=== PATIENT | female | born 1955 | race Caucasian/White ===

== ENCOUNTER → 2020-05-28 | Outpatient (CLI) | payer MEDICARE ==
[2020-05-28 14:41] VITALS: BP 136/84; PULSE 66; RESP 16; TEMP 98.2; BMI 46.1
--- NOTE | 2020-05-28 15:52 | P.BASOAP ---
Subjective Progress Note Date: 05/28/20 Principal diagnosis: Morbid obesity 65-year-old female underwent laparoscopic band placement many years ago. Patient was 89 she thinks around the time of her band placement. Currently at 273. Describes feeling something stuck in the back of her throat. She points to the supracervical notch. History of thyroid nodule. Patient also has episodes of vomiting one to 2 times per month. Increasing reflux as well. Sometimes she has discomfort in the upper abdomen and radiates to the back. She is considering band removal. Patient is not sure how much fluid is in her band. Objective - Vital Signs Vital signs: Vital Signs Temp 98.2 F 05/28/20 14:36 Pulse 66 05/28/20 14:36 Resp 16 05/28/20 14:36 BP 136/84 05/28/20 14:36 Pulse Ox Intake & Output 05/27/20 05/28/20 05/28/20 18:59 06:59 18:59 Weight 123.831 kg - Exam Abdomen: Soft, nontender, nondistended Assessment/Plan (1) Morbid obesity Narrative/Plan: 65-year-old female with worsening reflux and episodes of vomiting. Options reviewed. We'll into the band at this time. Depending on how the patient feels with the band empty may consider band removal. The patient's lap band port was palpated. The site was aseptically prepped. The Kirby needle was advanced into the port. A total of 2 ml of fluid was removed. Band is now empty. Pressure was held and a sterile dressing was applied. Plan: Date: 05/28/20 Initial Weight: 123.831 kg Initial BMI: 46.1 Current Weight: 123.831 kg Current BMI: 46.1 Type of Surgery: Adjustable Gastric Banding Total Volume in Band: Previous Volume: Volume Removed: Volume Added: Band Size:
== END | disposition home or self-care (01) ==
LOC: BARWHC3 13:53
PROVIDERS: ATTEND Surgery
DX: E66.01 Morbid (severe) obesity due to excess calories (principal); Z68.42 Body mass index [BMI] 45.0-49.9, adult; Z46.51 Encounter for fitting and adjustment of gastric lap band
CPT/HCPCS: 99212

== ENCOUNTER → 2020-06-11 | Outpatient (CLI) | payer MEDICARE ==
[2020-06-11 13:14] VITALS: BP 146/94; TEMP 97.2; BMI 47.2
--- NOTE | 2020-06-11 16:31 | P.BASOAP ---
Subjective Progress Note Date: 06/11/20 Principal diagnosis: Morbid obesity Patient returns for reevaluation. Last seen on 05/28. Her band was emptied at that time. Patient still feels a fullness in the supracervical region. No significant change in restriction after emptying her band. No heartburn. Has an appointment to see a new ear nose and throat physician regarding her neck fullness. History of thyroid nodule. Objective - Vital Signs Vital signs: Vital Signs Temp 97.2 F L 06/11/20 13:06 Pulse Resp BP 146/94 06/11/20 13:06 Pulse Ox Intake & Output 06/10/20 06/11/20 06/11/20 18:59 06:59 18:59 Weight 124.738 kg - Exam Abdomen: Soft, nontender, nondistended Assessment/Plan (1) Morbid obesity Narrative/Plan: Patient doing well after and during her band. Her upper GI today shows no evidence of leak or obstruction. No prolapse or erosion noted. Patient still having neck fullness. Await ENT evaluation prior to filling the band. Patient does seem interested in having fluid back to the band after she has completed her workup. Plan: Date: 06/11/20 Initial Weight: 123.831 kg Initial BMI: 46.8 Current Weight: 124.738 kg Current BMI: 47.2 Type of Surgery: Total Volume in Band: Previous Volume: Volume Removed: Volume Added: Band Size:
== END | disposition home or self-care (01) ==
LOC: BARWHC3 11:48
PROVIDERS: ATTEND Surgery
DX: E66.01 Morbid (severe) obesity due to excess calories (principal); Z46.51 Encounter for fitting and adjustment of gastric lap band; Z68.42 Body mass index [BMI] 45.0-49.9, adult
CPT/HCPCS: 99211

== ENCOUNTER → 2020-06-11 | Outpatient (CLI) | payer MEDICARE ==
--- NOTE | 2020-06-11 15:30 | FL ---
Barium swallow HISTORY: Dysphagia Patient received contrast material drink. Attention directed to the gastroesophageal junction and dis yaneth thoracic esophagus. 1 minute 18 seconds fluoroscopy time. 11 images obtained. Inhalation Therapist film shows a lap band in place. Swallowing mechanism was unremarkable. Lap band shows normal orientation. There is normal contrast fl ow across the LAP-BAND. There is no evident leak. IMPRESSION: Lap band is within normal limits. No evident leak.
== END | disposition home or self-care (01) ==
LOC: RADFLMAIN 10:51
PROVIDERS: ATTEND Surgery
DX: R13.10 Dysphagia, unspecified (principal)
CPT/HCPCS: 74220

== ENCOUNTER → 2023-08-24 | Outpatient (CLI) | payer MEDICARE ==
[2023-08-24 15:14] VITALS: BP 150/78; PULSE 75; RESP 16; TEMP 98.2; BMI 46.3
--- NOTE | 2023-08-24 16:29 | P.BASOAP ---
Subjective Progress Note Date: 08/24/23 Principal diagnosis: Morbid obesity Patient returns for recheck. Last seen 3 years ago. Patient still having complaints of intermittent vomiting and reflux. Mild pain at her port site. Patient has had a lot of stress at home. Previously her band had been emptied. Upper GI had been performed after the band was empty and showed no obstruction or prolapse. Patient is interested in band removal. Objective - Vital Signs Vital signs: Vital Signs Temp 98.2 F 08/24/23 14:41 Pulse 75 08/24/23 14:41 Resp 16 08/24/23 14:41 BP 150/78 08/24/23 14:41 Pulse Ox FiO2 Intake & Output 08/23/23 08/24/23 08/24/23 18:59 06:59 18:59 Weight 122.47 kg - Exam Abdomen: Soft, nontender, nondistended Assessment/Plan (1) Morbid obesity Narrative/Plan: 68-year-old female with history of lap band placement and ongoing issues with band intolerance. Patient with intermittent vomiting and daily reflux. Now having more pain at the port site. Agree with plans for lap band removal. I do leave this is medically necessary at this point given her progressive symptoms. Plan: Date: 08/24/23 Initial Weight: 123.831 kg Initial BMI: 46.8 Current Weight: 122.47 kg Current BMI: 46.3 Type of Surgery: Adjustable Gastric Banding Total Volume in Band: Previous Volume: Volume Removed: Volume Added: Band Size:
== END ==
LOC: BARWHC3 14:16
PROVIDERS: ATTEND Surgery
DX: E66.01 Morbid (severe) obesity due to excess calories (principal); K21.9 Gastro-esophageal reflux disease without esophagitis; R11.10 Vomiting, unspecified; F43.9 Reaction to severe stress, unspecified; Z98.84 Bariatric surgery status; Z68.42 Body mass index [BMI] 45.0-49.9, adult; Z88.2 Allergy status to sulfonamides; Z88.8 Allergy status to other drugs, medicaments and biological substances
CPT/HCPCS: 99211

== ENCOUNTER → 2023-10-01 | Outpatient (CLI) | payer MEDICARE ==
[2023-10-01 17:01] LABS: Basophils # (A) 0.04 X 10*3/uL (0.00-0.10); Basophils % (A) 0.5 %; Eosinophils # (A) 0.52 X 10*3/uL (0.04-0.35); Eosinophils % (A) 6.5 %; HCT 39.5 % (37.2-46.3); Lymphocytes # (A) 1.87 X 10*3/uL (0.90-5.00); Lymphocytes % (A) 23.4 %; MCH 28.8 pg (27.0-32.0); MCHC 32.9 g/dL (32.0-37.0); MCV 87.6 FL (80.0-97.0); Mean Platelet Volume 11.9 FL (9.5-12.2); Monocytes # (A) 0.66 X 10*3/uL (0.20-1.00); Monocytes % (A) 8.3 %; NRBC Per 100 WBC 0 X 10*3/uL (0.00-0.01); Neutrophils # (A) 4.86 X 10*3/uL (1.80-7.70); Neutrophils % (A) 60.9 %; Platelet Count 214 X 10*3/uL (140-440); RBC 4.51 X 10*6/uL (4.10-5.20); RDW 12.8 % (11.5-14.5); WBC 7.98 X 10*3/uL (4.50-10.00)
[2023-10-01 17:03] LABS: BUN/Creat Ratio 24.78 Ratio (12.00-20.00); Blood Urea Nitrogen 22.3 mg/dL (9.0-27.0); Carbon Dioxide 23.9 mmol/L (21.6-31.8); Chloride 103 mmol/L (96-109); Glucose 129 mg/dL (70-110); Potassium 4.8 mmol/L (3.5-5.5); Sodium 139 mmol/L (135-145)
[2023-10-01 17:04] LABS: ALT 25 U/L (8-44); AST 24 U/L (13-35); Albumin 4.2 g/dL (3.8-4.9); Alkaline Phosphatase 67 U/L (41-126); Calcium 9.4 mg/dL (8.7-10.3); Globulin 2.1 g/dL (1.6-3.3); Total Bilirubin 0.4 mg/dL (0.3-1.2); Total Protein 6.3 g/dL (6.2-8.2)
== END | disposition home or self-care (01) ==
LOC: LABPAT 12:41
PROVIDERS: ATTEND Surgery
DX: Z01.818 Encounter for other preprocedural examination (principal)
CPT/HCPCS: 36415; 80053; 85025

== ENCOUNTER 2023-10-08 07:34 | Day surgery (SDC) | payer MEDICARE ==
[2023-10-05 12:49] VITALS: BMI 43.9
[~2023-10-08 07:34] MED LIST: HYDROmorphone 0.5 MG/0.5 ML SYRINGE IVP PRN; MIDAZOLAM 2 MG/2 ML VIAL IV PRN
--- NOTE | 2023-10-08 07:37 | P.GSHP ---
History of Present Illness H&P Date: 10/08/23 Chief Complaint: Band intolerance 68-year-old female here today for Lap-Band removal. Patient with worsening discomfort at her Lap-Band port site. Still has intermittent vomiting and reflux. Band is empty at this time. Past Medical History Past Medical History: Asthma, Diabetes Mellitus, GERD/Reflux, Hearing Disorder / Deafness, Hyperlipidemia, Hypertension, Sleep Apnea/CPAP/BIPAP, Thyroid Disorder Additional Past Medical History / Comment(s): No CPAP use. Chronic sinus issues. Varicose veins - wears compression stockings. Small thyroid nodule. Ringing in ears causing some hearing problems. History of Any Multi-Drug Resistant Organisms: None Reported Past Surgical History: Appendectomy, Bariatric Surgery Additional Past Surgical History / Comment(s): Lap band 2004, sinus surgery X2, adhesions removed for infertility issues 1987. Past Anesthesia/Blood Transfusion Reactions: No Reported Reaction Past Psychological History: Depression Smoking Status: Former smoker Past Alcohol Use History: Rare Additional Past Alcohol Use History / Comment(s): Quit smoking in 1987. Past Drug Use History: None Reported - Past Family History Mother Family Medical History: No Reported History Medications and Allergies Home Medications Medication Instructions Recorded Confirmed Type Albuterol Inhaler [Ventolin Hfa 2 puff INHALATION DIRECTED 06/12/20 10/05/23 History Inhaler] Escitalopram [Lexapro] 20 mg PO QAM 06/12/20 10/05/23 History Insulin Glargine [Lantus] 22 unit SQ BID@1200,0000 06/12/20 10/05/23 History Lisinopril-Hctz 20-25 mg 1 tab PO QAM 06/12/20 10/05/23 History [Zestoretic 20-25] Loratadine [Claritin] 10 mg PO DAILY PRN 06/12/20 10/05/23 History metFORMIN HCL [Glucophage] 500 mg PO BID 06/12/20 10/05/23 History Pantoprazole [Protonix] 40 mg PO 1200 08/30/23 10/05/23 History Atorvastatin Calcium 20 mg PO HS 09/30/23 10/05/23 History Cetirizine HCl [Zyrtec] 10 mg PO DAILY PRN 09/30/23 10/05/23 History Tirzepatide [Mounjaro] 10 mg SQ Q7D 09/30/23 10/05/23 History Allergies Allergy/AdvReac Type Severity Reaction Status Date / Time Sulfa (Sulfonamide Allergy Rash/Hives Verified 10/05/23 12:27 Antibiotics) naproxen [From Aleve] AdvReac tongue Verified 10/05/23 12:27 swelling/lips tingling (when taken w/ peppermint sup) Surgical - Exam Physical exam: General: Well-developed, well-nourished HEENT: Normocephalic, sclerae nonicteric Abdomen: Nontender, nondistended Extremities: No edema Neuro: Alert and oriented Assessment and Plan (1) Abdominal pain Narrative/Plan: Will proceed with laparoscopic Lap-Band removal, possible open. The risks of bleeding, infection, stenosis, stricture, leak, abscess, fistula formation, peritonitis, reflux, vomiting, conversion to an open procedure, MN, PE, DVT, and were discussed. The patient understands and wishes to proceed. Current Visit: Yes Status: Acute Code(s): R10.9 - UNSPECIFIED ABDOMINAL PAIN SNOMED Code(s): 13000936
[2023-10-08] MEDS: IV FLUID CONTINUATION 1,000 ML IV ONE (08:02)
[2023-10-08 08:30] LABS: Glucose,Whole Blood 117 mg/dL (70-110)
[2023-10-08] MEDS: ONDANSETRON 4 MG/2 ML VIAL IVP ONE (08:36)
[2023-10-08] MEDS: DEXAMETHASONE SOD PHOSPHATE 4 MG/ML 1 ML VIAL IV ONE (08:36)
[2023-10-08] MEDS: FAMOTIDINE 20 MG/2 ML VIAL IV STA (08:37)
[2023-10-08] MEDS: LACTATED RINGERS 1,000 ML IV SCH (08:37)
[2023-10-08] MEDS ORDERED: PROPOFOL 10 MG/ML 20 ML VIAL IV ONE (09:08)
[2023-10-08] MEDS ORDERED: SUCCINYLCHOLINE CHLORIDE 200 MG/10 ML VIAL IV ONE (09:08)
[2023-10-08] MEDS ORDERED: fentaNYL (PF) 50 MCG/ML 2 ML AMP ONE (09:08)
[2023-10-08] MEDS ORDERED: GLYCOPYRROLATE 0.2 MG/ML 2 ML VIAL ONE (09:08)
[2023-10-08] MEDS ORDERED: ROCURONIUM 10 MG/ML (5 ML VIAL) IV ONE (09:08)
[2023-10-08] MEDS ORDERED: MIDAZOLAM 2 MG/2 ML VIAL ONE (09:08)
[2023-10-08] MEDS ORDERED: LIDOCAINE 1% INJ 10MG/ML (20 ML MDV) ONE (09:08)
[2023-10-08] MEDS ORDERED: NEOSTIGMINE 1 MG/ML 10 ML VIAL ONE (09:08)
[2023-10-08] MEDS: BUPIVACAINE (PF) 0.25% 30 ML VIAL SQ ONE (09:45)
[2023-10-08 10:39] VITALS: TEMP 98.7
[2023-10-08] MEDS ORDERED: NALOXONE 0.4 MG/ML 1 ML VIAL IV PRN (10:41)
[2023-10-08] MEDS ORDERED: ACETAMINOPHEN TAB 325 MG TAB PO PRN (10:41)
--- NOTE | 2023-10-08 10:43 | P.OP ---
Date of Procedure: 10/08/23 Procedure(s) Performed: PREOPERATIVE DIAGNOSIS: Band intolerance/abdominal pain POSTOPERATIVE DIAGNOSIS: Same PROCEDURE: Laparoscopic lap band removal SURGEON: Oswald EBL: Minimal ANESTHESIA: General COMPLICATIONS: None OPERATIVE PROCEDURE: The patient was brought and placed on the operating room table in the supine position. The patient was placed under general anesthesia at that time. The patient was then placed in lithotomy. The abdomen was prepped and draped in the usual sterile fashion. The previous port incision was localized and then incised using a scalpel. The port was easily excised using electrocautery. Entrance into the peritoneal cavity occurred using a 5 mm optical trocar through the old trocar entrance site. Insufflation took place to 15 mmHg. A right subxiphoid 5 mm trocar was placed. This was then removed and the medium Abhi hook was used to elevate the left lobe of the liver anteriorly. An additional 5 mm trocar was placed under direct visualization in the left lateral upper quadrant. The original 5 mm trocar was switched to a 15 mm trocar. A additional 5 mm trocar was placed in the midline under direct dilatation. There were adhesions to the band in the buccal that were lysed using both the LigaSure and electrocautery. The band was then cut using the laparoscopic sarita. The band was then removed easily in 2 portions through the 15 mm trocar site. The stomach itself was inspected and revealed no evidence of erosion or prolapse. The trochars were removed. The fascia at the 15 mm site was closed using a [id number] 0 Vicryl stitch. The subcutaneous tissues at the port site was closed using a 3-0 Vicryl suture. The skin at all 4 incision sites were closed using 4-0 Monocryl sutures. Steri-Strips and sterile dressings were then applied. DISPOSITION: Stable to recovery room
[2023-10-08 11:39] LABS: Glucose,Whole Blood 188 mg/dL (70-110)
[2023-10-08] MEDS: HYDROcodone/APAP 5-325MG 1 EACH TAB PO PRN (12:01)
[2023-10-08] MEDS: KETOROLAC 15 MG/ML 1 ML VIAL IVP SCH (12:19)
[2023-10-08] MEDS: IPRATROPIUM-ALBUTEROL 3 ML NEB INHALATION STA (13:08)
[2023-10-08 13:58] VITALS: BP 114/65; PULSE 69; RESP 17
== END 2023-10-08 13:17 | disposition home or self-care (01) ==
LOC: OR 07:34
PROVIDERS: ATTEND Surgery
DX: K95.09 Other complications of gastric band procedure (principal); J45.909 Unspecified asthma, uncomplicated; E11.9 Type 2 diabetes mellitus without complications; K21.9 Gastro-esophageal reflux disease without esophagitis; H91.90 Unspecified hearing loss, unspecified ear; E78.5 Hyperlipidemia, unspecified; I10 Essential (primary) hypertension; E07.9 Disorder of thyroid, unspecified; G47.33 Obstructive sleep apnea (adult) (pediatric); F32.A Depression, unspecified; F10.90 Alcohol use, unspecified, uncomplicated; Z90.49 Acquired absence of other specified parts of digestive tract; Z98.84 Bariatric surgery status; Z87.891 Personal history of nicotine dependence; Z79.51 Long term (current) use of inhaled steroids; Z79.4 Long term (current) use of insulin; Z79.84 Long term (current) use of oral hypoglycemic drugs; Z79.899 Other long term (current) drug therapy; Z88.2 Allergy status to sulfonamides; Z88.6 Allergy status to analgesic agent; Y83.8 Other surgical procedures as the cause of abnormal reaction of the patient, or of later complication, without mention of misadventure at the time of the procedure
CPT/HCPCS: 84132; 43772; J2250; J0330; J1100; J2710; J0690; J2405; J2001; J3010; J3490; J1885; J2704; J0665